=== PATIENT | female | born 1995 | race Caucasian/White ===

== ENCOUNTER 2019-01-27 15:14 | Emergency (ER) | payer BC ==
[~2019-01-27] VITALS: Ht 154.9 cm; Wt 106.1 kg
[2019-01-27 15:24] VITALS: BP 120/72
--- NOTE | 2019-01-27 15:44 | NUR ---
PT BIB SELF FOR LT ARM PAIN X2 HOURS. PT REPORTS MECHANICAL SLIP AND FALL IN SHOWER, LANDING ON LT ELBOW. PT REPORTS SORE PAIN AT 3/10 WHEN BENIDING ARM. +CMS. PT DENEIS HITTING HEAD OR LOC. VSS. ER MD TO SEE PT.
[2019-01-27 17:17] VITALS: BP 117/70
== END 2019-01-27 17:17 | disposition home or self-care (01) ==
LOC: MED 15:14
DX: S50.02XA Contusion of left elbow, initial encounter (principal); S50.312A Abrasion of left elbow, initial encounter; W01.0XXA Fall on same level from slipping, tripping and stumbling without subsequent striking against object, initial encounter; Y93.89 Activity, other specified; Y92.091 Bathroom in other non-institutional residence as the place of occurrence of the external cause; Y99.8 Other external cause status
CPT/HCPCS: 73080; 81002; 81025; 99283

== ENCOUNTER 2021-04-29 03:45 | Emergency (ER) | payer BC, OTHER ==
[~2021-04-29] VITALS: Ht 154.9 cm; Wt 108.9 kg
[2021-04-29 03:55] VITALS: BP 136/75
--- NOTE | 2021-04-29 03:58 | NUR ---
TO LOBBY A/W BED AMBULATORY
--- NOTE | 2021-04-29 04:54 | NUR ---
SEEN AND EXAMINED BY GRACIE WITH ORDERS AND CARRIED OUT.
--- NOTE | 2021-04-29 04:58 | NUR ---
PT AMBULATED TO RESTROOM FOR URINE SAMPLE.
[2021-04-29] MEDS ORDERED: AMOXICILLIN 500 MG CAP PO ONE (05:00)
[2021-04-29] MEDS ORDERED: KETOROLAC 60 MG/2 ML VIAL IM ONE (05:00)
[2021-04-29] MEDS ORDERED: IBUP-2218 PO (05:02)
[2021-04-29] MEDS ORDERED: AMOX-1000 PO (05:02)
--- NOTE | 2021-04-29 05:05 | NUR ---
MEDICATED PER [facility] ORDER, TOERATED WELL.
[2021-04-29 05:25] VITALS: BP 136/75
--- NOTE | 2021-04-29 05:25 | NUR ---
Patient discharged with v/s stable. Written and verbal after care instructions given and explained. Patient alert, oriented and verbalized understanding of instructions. Ambulatory with steady gait. All questions addressed prior to discharge. ID band removed. Patient advised to follow up with PMD. Rx of IBUPROFEN, AUGMENTIN given. Patient educated on indication of medication including possible reaction and side effects. Opportunity to ask questions provided and answered.
== END 2021-04-29 05:25 | disposition home or self-care (01) ==
LOC: MED 03:45
DX: K08.89 Other specified disorders of teeth and supporting structures (principal)
CPT/HCPCS: 81025; 96372; 99283; J1885